=== PATIENT | female | born 1970 | race Caucasian/White ===

== ENCOUNTER → 2017-04-18 09:37 | Outpatient (CLI) | payer MEDICARE ==
[2011-02-16 09:43] VITALS: BMI 45.6
== END | disposition home or self-care (01) ==
LOC: D.NM 04-03 11:30
DX: R13.10 Dysphagia, unspecified (principal); R19.4 Change in bowel habit; R10.9 Unspecified abdominal pain

== ENCOUNTER 2018-11-20 05:05 | Emergency (ER) | payer MEDICARE ==
[~2018-11-20] VITALS: Ht 154.9 cm; Wt 100.0 kg
[2018-11-20 05:06] VITALS: Ht 154.9 cm; Wt 100.0 kg
[2018-11-20] MEDS ORDERED: NEURONTIN 400400 MG PO (05:08)
[2018-11-20] MEDS ORDERED: NORCO 10-325 TA1 TAB (05:08)
[2018-11-20 12:34] VITALS: BP 177/87
== END 2018-11-20 12:35 | disposition other institution (70) ==
LOC: D.ER 05:05
DX: M96.89 Other intraoperative and postprocedural complications and disorders of the musculoskeletal system (principal); S32.048A Other fracture of fourth lumbar vertebra, initial encounter for closed fracture; X58.XXXA Exposure to other specified factors, initial encounter; Y93.89 Activity, other specified; Y92.89 Other specified places as the place of occurrence of the external cause; M79.18 Myalgia, other site

== ENCOUNTER 2018-12-17 00:34 | Emergency (ER) | payer MEDICARE ==
[~2018-12-17] VITALS: Ht 154.9 cm; Wt 102.3 kg
[~2018-12-17 00:34] MED LIST: NEURONTIN 400400 MG PO; NORCO 10-325 TA1 TAB
[2018-12-17 00:37] VITALS: Ht 154.9 cm; Wt 102.3 kg
[2018-12-17 01:14] LABS: BASOPHILS 0.2 % (0-2); EOSINOPHILS 1.6 % (0-7); HEMATOCRIT 31.5 % (36.0-48.0); HEMOGLOBIN 9.9 g/dL (12-16); IMMATURE GRANULOCYTES 0.4 % (0-5); LYMPHOCYTES 30.5 % (15-50); MCH 25.6 pg (26.0-34.0); MCHC 31.4 g/dL (31.0-37.0); MCV 81.4 fL (80.0-100.0); MEAN PLATELET VOLUME 8.8 fL (7.4-10.4); MONOCYTES 6.3 % (2-11); RBC 3.87 10x6/uL (4.00-5.40); RDW 14.6 % (11.5-14.5); WBC 10.5 10x3/uL (4.8-10.8)
[2018-12-17 01:16] LABS: PLATELET COUNT 648 10x3/uL (130-400)
[2018-12-17 01:24] LABS: ALBUMIN 3.2 g/dL (3.4-5.0); ALKALINE PHOSPHATASE 137 U/L (46-116); ALT (SGPT) 16 U/L (10-68); CALC OSMOLALITY 275 mosm/kg (275-300); CALCIUM 9.2 mg/dL (8.5-10.1); CARBON DIOXIDE 27.8 mmol/L (21.0-32.0); CHLORIDE - SERUM 98 mmol/L (98-107); CREATININE - SERUM 0.8 mg/dL (0.6-1.3); GLUCOSE 122 mg/dL (74-106); POTASSIUM - SERUM 3.9 mmol/L (3.5-5.1); PROTEIN - SERUM 8.4 g/dL (6.4-8.2); SODIUM 137 mmol/L (136-145); UREA NITROGEN 14 mg/dL (7-18); eGFR NON AFRICAN AMERICAN 82 mL/min (90-120)
[2018-12-17 02:37] VITALS: BP 145/75
== END 2018-12-17 02:38 | disposition home or self-care (01) ==
LOC: D.ER 00:34
PROVIDERS: Family Medicine
DX: L76.34 Postprocedural seroma of skin and subcutaneous tissue following other procedure (principal); G89.18 Other acute postprocedural pain; M54.5 Low back pain; M54.6 Pain in thoracic spine; I10 Essential (primary) hypertension

== ENCOUNTER → 2019-01-12 13:33 | Outpatient (CLI) | payer MEDICARE ==
[2018-12-17 00:37] VITALS: BMI 42.6
[2019-01-12 16:14] LABS: CALC OSMOLALITY 286 mosm/kg (275-300); CALCIUM 8.2 mg/dL (8.5-10.1); CARBON DIOXIDE 29.1 mmol/L (21.0-32.0); CHLORIDE - SERUM 106 mmol/L (98-107); CREATININE - SERUM 0.8 mg/dL (0.6-1.3); GLUCOSE 111 mg/dL (74-106); POTASSIUM - SERUM 3.6 mmol/L (3.5-5.1); SODIUM 143 mmol/L (136-145); UREA NITROGEN 15 mg/dL (7-18); eGFR NON AFRICAN AMERICAN 82 mL/min (90-120)
== END | disposition home or self-care (01) ==
LOC: D.LABREF 13:33
PROVIDERS: Family Medicine
DX: Z98.1 Arthrodesis status (principal); M54.9 Dorsalgia, unspecified; Z51.81 Encounter for therapeutic drug level monitoring; Z79.2 Long term (current) use of antibiotics

== ENCOUNTER → 2019-01-19 14:04 | Outpatient (CLI) | payer MEDICARE ==
[2018-12-17 00:37] VITALS: BMI 42.6
[2019-01-19 14:35] LABS: BASOPHILS 0.7 % (0-2); EOSINOPHILS 6.5 % (0-7); HEMATOCRIT 31.8 % (36.0-48.0); HEMOGLOBIN 9.5 g/dL (12-16); IMMATURE GRANULOCYTES 0.2 % (0-5); MCH 23.9 pg (26.0-34.0); MCHC 29.9 g/dL (31.0-37.0); MCV 80.1 fL (80.0-100.0); MEAN PLATELET VOLUME 10.2 fL (7.4-10.4); MONOCYTES 6.1 % (2-11); NEUTROPHILS 40.5 % (40-80); RBC 3.97 10x6/uL (4.00-5.40); RDW 17.2 % (11.5-14.5)
[2019-01-19 14:36] LABS: PLATELET COUNT 381 10x3/uL (130-400)
[2019-01-19 14:52] LABS: CALC OSMOLALITY 280 mosm/kg (275-300); CALCIUM 8.7 mg/dL (8.5-10.1); CARBON DIOXIDE 26.6 mmol/L (21.0-32.0); CHLORIDE - SERUM 103 mmol/L (98-107); CREATININE - SERUM 0.7 mg/dL (0.6-1.3); GLUCOSE 91 mg/dL (74-106); POTASSIUM - SERUM 3.9 mmol/L (3.5-5.1); SODIUM 140 mmol/L (136-145); UREA NITROGEN 18 mg/dL (7-18); eGFR NON AFRICAN AMERICAN > 90 mL/min (90-120)
== END | disposition home or self-care (01) ==
LOC: D.LABREF 14:04
PROVIDERS: ATTEND Internal Medicine Infectious Disease
DX: T81.31XD Disruption of external operation (surgical) wound, not elsewhere classified, subsequent encounter (principal)

== ENCOUNTER → 2019-01-26 19:28 | Outpatient (CLI) | payer MEDICARE ==
[2018-12-17 00:37] VITALS: BMI 42.6
[2019-01-26 19:57] LABS: CALCIUM 9.4 mg/dL (8.5-10.1); CARBON DIOXIDE 26.4 mmol/L (21.0-32.0); CREATININE - SERUM 0.9 mg/dL (0.6-1.3); POTASSIUM - SERUM 4.4 mmol/L (3.5-5.1)
== END | disposition home or self-care (01) ==
LOC: D.LABREF 19:28
PROVIDERS: ATTEND Internal Medicine Infectious Disease
DX: T81.40XA Infection following a procedure, unspecified, initial encounter (principal)

== ENCOUNTER → 2019-02-02 12:09 | Outpatient (CLI) | payer MEDICARE ==
[2018-12-17 00:37] VITALS: BMI 42.6
[2019-02-02 12:54] LABS: BASOPHILS 0.2 % (0-2); EOSINOPHILS 5.4 % (0-7); HEMATOCRIT 31.4 % (36.0-48.0); HEMOGLOBIN 9.4 g/dL (12-16); IMMATURE GRANULOCYTES 0.5 % (0-5); LYMPHOCYTES 29.9 % (15-50); MCH 23.8 pg (26.0-34.0); MCHC 29.9 g/dL (31.0-37.0); MCV 79.5 fL (80.0-100.0); MONOCYTES 4.9 % (2-11); NEUTROPHILS 59.1 % (40-80); PLATELET COUNT 412 10x3/uL (130-400); RBC 3.95 10x6/uL (4.00-5.40); RDW 16.8 % (11.5-14.5); WBC 8.1 10x3/uL (4.8-10.8)
[2019-02-02 12:57] LABS: CALC OSMOLALITY 272 mosm/kg (275-300); CALCIUM 8.7 mg/dL (8.5-10.1); CARBON DIOXIDE 28.2 mmol/L (21.0-32.0); CHLORIDE - SERUM 100 mmol/L (98-107); CREATININE - SERUM 0.6 mg/dL (0.6-1.3); POTASSIUM - SERUM 4.3 mmol/L (3.5-5.1); SODIUM 136 mmol/L (136-145); UREA NITROGEN 17 mg/dL (7-18); eGFR NON AFRICAN AMERICAN > 90 mL/min (90-120)
[2019-02-02 12:59] LABS: GLUCOSE 89 mg/dL (74-106)
== END | disposition home or self-care (01) ==
LOC: D.LABREF 12:09
PROVIDERS: ATTEND Internal Medicine Infectious Disease
DX: T81.31XD Disruption of external operation (surgical) wound, not elsewhere classified, subsequent encounter (principal)

== ENCOUNTER → 2019-02-09 13:48 | Outpatient (CLI) | payer MEDICARE ==
[2018-12-17 00:37] VITALS: BMI 42.6
[2019-02-09 15:06] LABS: BASOPHILS 0.2 % (0-2); EOSINOPHILS 3.8 % (0-7); HEMATOCRIT 30.9 % (36.0-48.0); HEMOGLOBIN 9.3 g/dL (12-16); IMMATURE GRANULOCYTES 0.3 % (0-5); LYMPHOCYTES 28.2 % (15-50); MCH 23.7 pg (26.0-34.0); MCHC 30.1 g/dL (31.0-37.0); MCV 78.8 fL (80.0-100.0); MEAN PLATELET VOLUME 9.8 fL (7.4-10.4); MONOCYTES 6.1 % (2-11); NEUTROPHILS 61.4 % (40-80); PLATELET COUNT 364 10x3/uL (130-400); RBC 3.92 10x6/uL (4.00-5.40); RDW 16.8 % (11.5-14.5)
[2019-02-09 15:25] LABS: CALC OSMOLALITY 273 mosm/kg (275-300); CALCIUM 8.8 mg/dL (8.5-10.1); CARBON DIOXIDE 25.9 mmol/L (21.0-32.0); CHLORIDE - SERUM 102 mmol/L (98-107); CREATININE - SERUM 0.7 mg/dL (0.6-1.3); GLUCOSE 82 mg/dL (74-106); POTASSIUM - SERUM 4.1 mmol/L (3.5-5.1); SODIUM 137 mmol/L (136-145); UREA NITROGEN 16 mg/dL (7-18); eGFR NON AFRICAN AMERICAN > 90 mL/min (90-120)
== END | disposition home or self-care (01) ==
LOC: D.LABREF 13:48
PROVIDERS: ATTEND Family Medicine
DX: T81.31XA Disruption of external operation (surgical) wound, not elsewhere classified, initial encounter (principal); T81.42XA Infection following a procedure, deep incisional surgical site, initial encounter

== ENCOUNTER → 2019-11-27 | Emergency (ER) | payer MEDICARE ==
[~2019-11-27] VITALS: Ht 154.9 cm; Wt 113.6 kg
[~2019-11-27] MED LIST changes: +KLONOPIN1 MG PO; +NEURONTIN 300300 MG PO; +SEROQUEL400 MG PO; +ZOFRAN ODT4 MG/UDTAB PO
[2019-11-27 17:38] VITALS: Ht 154.9 cm; Wt 113.6 kg
[2019-11-27 18:10] LABS: CALC OSMOLALITY 282 mosm/kg (275-300); CALCIUM 9.3 mg/dL (8.5-10.1); CHLORIDE - SERUM 101 mmol/L (98-107); POTASSIUM - SERUM 3.9 mmol/L (3.5-5.1); SODIUM 140 mmol/L (136-145); UREA NITROGEN 14 mg/dL (7-18); eGFR NON AFRICAN AMERICAN 63 mL/min (90-120)
[2019-11-27 18:11] LABS: APTT 30.9 SECONDS (22.8-39.4); GLUCOSE 147 mg/dL (74-106); PROTIME 13.2 SECONDS (11.6-15.0)
[2019-11-27 18:15] LABS: BASOPHILS 0.2 % (0-2); EOSINOPHILS 0.9 % (0-7); HEMATOCRIT 43.4 % (36.0-48.0); HEMOGLOBIN 14.3 g/dL (12-16); IMMATURE GRANULOCYTES 0.4 % (0-5); LYMPHOCYTES 24.4 % (15-50); MCH 28.6 pg (26.0-34.0); MCHC 32.9 g/dL (31.0-37.0); MCV 86.8 fL (80.0-100.0); MEAN PLATELET VOLUME 9.7 fL (7.4-10.4); MONOCYTES 5.1 % (2-11); PLATELET COUNT 365 10x3/uL (130-400); RDW 14.4 % (11.5-14.5); WBC 12.6 10x3/uL (4.8-10.8)
[2019-11-27 18:26] LABS: ALBUMIN 3.5 g/dL (3.4-5.0); ALKALINE PHOSPHATASE 145 U/L (46-116); ALT (SGPT) 23 U/L (10-68); BILIRUBIN - TOTAL 0.07 mg/dL (0.2-1.3); CKMB 0.5 U/L (0.0-3.6); CREATINE KINASE 42 UL (21-215); MAGNESIUM - SERUM 1.8 mg/dL (1.8-2.4); PROTEIN - SERUM 7.9 g/dL (6.4-8.2); TROPONIN-I < 0.017 ng/mL (0.000-0.060)
[2019-11-27 18:55] VITALS: BP 162/97
== END ==
LOC: D.ER 17:35
PROVIDERS: Family Medicine
DX: M25.572 Pain in left ankle and joints of left foot (principal); S82.402A Unspecified fracture of shaft of left fibula, initial encounter for closed fracture; I10 Essential (primary) hypertension; M79.18 Myalgia, other site

== ENCOUNTER 2020-08-20 13:11 | Emergency (ER) | payer MEDICARE ==
[~2020-08-20] VITALS: Ht 154.9 cm; Wt 99.8 kg
[2020-08-20 13:24] VITALS: Ht 154.9 cm; Wt 99.8 kg
[2020-08-20 14:12] LABS: BASOPHILS 0.1 % (0-2); EOSINOPHILS 0 % (0-7); HEMOGLOBIN 15.1 g/dL (12-16); IMMATURE GRANULOCYTES 0.4 % (0-5); LYMPHOCYTES 11.5 % (15-50); MCH 28.9 pg (26.0-34.0); MCHC 33.6 g/dL (31.0-37.0); MCV 86.2 fL (80.0-100.0); MEAN PLATELET VOLUME 9.7 fL (7.4-10.4); MONOCYTES 2.8 % (2-11); NEUTROPHILS 85.2 % (40-80); PLATELET COUNT 412 10x3/uL (130-400); RBC 5.22 10x6/uL (4.00-5.40); RDW 14.7 % (11.5-14.5); WBC 14.1 10x3/uL (4.8-10.8)
[2020-08-20 14:23] LABS: CALC OSMOLALITY 269 mosm/kg (275-300); CALCIUM 10.4 mg/dL (8.5-10.1); CARBON DIOXIDE 24.5 mmol/L (21.0-32.0); CHLORIDE - SERUM 99 mmol/L (98-107); GLUCOSE 149 mg/dL (74-106); POTASSIUM - SERUM 3.3 mmol/L (3.5-5.1); SODIUM 134 mmol/L (136-145); UREA NITROGEN 10 mg/dL (7-18); eGFR NON AFRICAN AMERICAN 63 mL/min (90-120)
[2020-08-20 14:35] LABS: ALBUMIN 3.9 g/dL (3.4-5.0); ALKALINE PHOSPHATASE 135 U/L (30-120); ALT (SGPT) 21 U/L (10-68); AMYLASE - SERUM 41 U/L (25-115); BILIRUBIN - TOTAL 0.26 mg/dL (0.2-1.3); CREATINE KINASE 61 UL (21-215); PROTEIN - SERUM 9.2 g/dL (6.4-8.2)
[2020-08-20 14:36] LABS: LIPASE 40 U/L (73-393); TROPONIN-I < 0.017 ng/mL (0.000-0.060)
[2020-08-20] MEDS ORDERED: ZOFRAN ODT4 MG/UDTAB PO (15:00)
[2020-08-20 16:14] LABS: BILIRUBIN NEGATIVE (NEGATIVE); KETONE MODERATE mg/dL (NEGATIVE); NITRITE NEGATIVE (NEGATIVE); UROBILINOGEN NORMAL mg/dL (< 2)
[2020-08-20 16:20] LABS: BACTERIA FEW HPF (NONE SEEN); EPITHELIAL CELLS 0-5 /hpf (0-5); WHITE CELLS - URINE 0-5 HPF (0-4)
[2020-08-20 18:31] VITALS: BP 153/82
== END 2020-08-20 18:31 | disposition home or self-care (01) ==
LOC: D.ER 13:11
PROVIDERS: Family Medicine
DX: R06.02 Shortness of breath (principal); F41.9 Anxiety disorder, unspecified; I10 Essential (primary) hypertension; R11.2 Nausea with vomiting, unspecified; J70.5 Respiratory conditions due to smoke inhalation